=== PATIENT | male | born 1950 | race Caucasian/White ===

== ENCOUNTER → 2024-04-12 14:24 | Outpatient (REF) | payer MEDICARE, OTHER, SELFPAY | LOC: RAD 14:24 | PROVIDERS: ATTENDING PHYSICIAN Nurse Practitioner; FAMILY PHYSICIAN Family Medicine; REFERRING PHYSICIAN Internal Medicine Cardiovascular Disease | DX: R07.89 Other chest pain (principal); R06.02 Shortness of breath | CPT/HCPCS: 71046 ==

== ENCOUNTER → 2024-04-16 10:45 | Outpatient (REF) | payer MEDICARE, OTHER, SELFPAY | LOC: HWRCS 10:45 | PROVIDERS: ATTENDING PHYSICIAN Nurse Practitioner; FAMILY PHYSICIAN Family Medicine | DX: R07.89 Other chest pain (principal) | CPT/HCPCS: 78452; 93017; A9500; J2785 ==

== ENCOUNTER 2024-04-20 08:40 | Inpatient (IN) | payer MEDICARE, OTHER, SELFPAY ==
[2024-04-19] VITALS (13 sets, daily range): BP systolic 110–140; BP diastolic 66–96; BMI 32.5; BMI 30.4
[2024-04-19 12:45] LABS: % Eosinophils 2.1 % (0-6); % Immature Granulocytes 0.5 % (0-0.5); % Lymphocytes 20.7 % (20.5-51.1); % Monocytes 10.5 % (1.7-9.3); % Neutrophils 64.2 % (42.2-75.2); Absolute Basophils 0.1 10^3/uL (0-0.2); Absolute Eosinophils 0.1 10^3/uL (0-0.7); Absolute Lymphocytes 1.3 10^3/uL (1.2-3.4); Absolute Monocytes 0.6 10^3/uL (0.1-0.6); Absolute Neutrophils 3.9 10^3/uL (1.4-6.5); Hematocrit 44.5 % (39.0-52.0); Hemoglobin 14.8 g/dL (13.0-18.0); Mean Corp Hgb Conc. 33.3 g/dL (33.0-37.0); Mean Corpuscular Hgb 30.3 pg (27.0-31.0); Mean Corpuscular Volume 91.2 fL (80.0-94.0); Nucleated Red Blood Cells % 0 % (-); Platelet Count 153 10^3/uL (130-400); Red Blood Cell Count 4.88 10^6/uL (4.70-6.10); Red Cell Dist. Width 14.6 % (11.5-14.5); White Blood Cell Count 6.1 10^3/uL (4.8-10.8)
[2024-04-19 12:47] LABS: ALT (SGPT) 16 U/L (0-50); AST (SGOT) 22 U/L (17-59); Albumin 4.2 g/dl (3.5-5.0); Alkaline Phosphatase 79 U/L (38-126); Blood Urea Nitrogen 33 mg/dl (9-20); Calcium 9.5 mg/dl (8.4-10.2); Carbon Dioxide 26 mmol/L (22-30); Chloride 104 mmol/L (98-107); Estimated Creatinine Clearance 47 ml/min; Glucose 118 mg/dl (70-99); Potassium 4.3 mmol/L (3.5-5.1); Sodium 137 mmol/L (135-145); Total Bilirubin 1.3 mg/dl (0.2-1.3); Total Protein 6.7 g/dl (6.3-8.2); eGFR 39.25
[2024-04-19 12:56] LABS: NT-proBNP 5780 pg/ml
--- NOTE | 2024-04-19 13:09 | ED.GENMED ---
History of Present Illness
General
Chief Complaint: Cardiac Symptoms
Source: patient
Exam Limitations: none
Time Seen by Provider: 04/19/24 12:06
Nursing documentation reviewed up to this point in time: agreed with
History of Present Illness
History of Present Illness:
73-year-old male past medical history of A-fib with pacemaker currently on Eliquis, CHF CAD hypertension, diabetes presenting to the emergency department with worsening dyspnea on exertion over the past 2 weeks. Denies any specific chest pain
nausea vomiting denies significant swelling. No recent fevers or illness.
Past History
Past History
ED Past Medical History: Arrthythmia (A. fib), CAD (Minimal disease on cardiac cath in 2013), CHF (Cardiomyopathy (EF 20%)), HTN and Hypercholesterolemia
ED Past Surgical History: Cardiac (AICD) and Orthopedic
Social History
Tobacco: Non-smoker
Review of Systems
Review of Systems
Allergies reviewed?: Yes
All Other Systems: ROS reviewed and negative except as documented in HPI and ROS
Phy Exam
Physical Exam
Physical Exam:
GENERAL: Alert , in no apparent distress
EYE: pupils equal and reactive
NECK: Supple, no significant adenopathy.
ENT: o/p clr, mmm.
CARDIAC: Regular rate and rhythm .
LUNGS: Clear breath sounds bilaterally, no acute respiratory distress, no wheezes/rales/rhonchi
ABDOMEN: Soft, without focal tenderness, no r/g, no cvat
NEUROLOGICAL: Alert and oriented, no focal neuro deficits
SKIN: Warm and dry, skin intact.
MUSCULOSKELETAL: No edema, well perfused.
PSYCH: Normal and appropriate interaction.
Course
Orders/Labs/Results
Orders:
Orders
04/19/24 12:03
EKG [Electrocardiogram (*1)] Urgent
Reason for Study: Shortness of Breath
EKG- Treatment ONCE
04/19/24 12:26
Complete Blood Count/With Diff Urgent
Comprehensive Metabolic Panel Urgent
NT-proBNP Urgent
04/19/24 12:31
Chest [CR Chest - 2 Views ] Urgent
Comment:
Reason For Exam: sob
04/19/24 12:52
Interrogate Pacemaker- Treatment ONCE
04/19/24 13:52
Furosemide [Lasix] 40 mg IV NOW STA
04/19/24 14:48
Echo 2D MMode Color/Doppler Routine
Reason for Study: CHF
Cardiology Consult: Stanford Lindsey
04/19/24 15:03
Case Management Consult ONCE
Case Management Consult: Discharge Planning
Comment: please assess cost to patient of entresto 24/26mg BID. MB
Abnormal Lab Results
04/19/24
12:26
RDW 14.6 H %
(11.5-14.5)
MPV 11.0 H fL
(7.4-10.4)
Monocytes % 10.5 H %
(1.7-9.3)
BUN 33 H mg/dl
(9-20)
Creatinine 1.8 H mg/dL
(0.7-1.3)
Glucose 118 H mg/dl
(70-99)
04/19/24 12:26
04/19/24 12:26
Vital Signs
Initial and Last Documented VS:
Initial Vital Signs
Temp Pulse Resp BP Pulse Ox
98.3 F 77 16 134/82 98
04/19/24 11:57 04/19/24 11:57 04/19/24 11:57 04/19/24 11:57 04/19/24 11:57
Last Documented Vital Signs
Temp Pulse Resp BP Pulse Ox
98.3 F 62 16 130/83 94
04/19/24 11:57 04/19/24 14:08 04/19/24 14:00 04/19/24 14:08 04/19/24 14:00
MDM/Problems Addressed
MDM/Problems Addressed:
73-year-old male presenting to the emergency department with concerns of worsening dyspnea on exertion over the past 2 weeks. Seems to have more frequent shortness of breath with exertion than previous but otherwise is able to engage in normal
activity today. BNP elevated to the 5000's here otherwise chest x-ray without acute abnormalities EKG no significant acute changes. Creatinine patient's baseline. Case discussed with cardiology. They were concerned of CHF exacerbation advised
for IV Lasix plan for echo and monitoring overnight.
*Critical Care Note
Total Time (30-74mins, 75-104mins- exclusive of procedures): Not Applicable
ED Attending Note
-
Portions of this chart may have been created with voice recognition software.� Occasional wrong word or��sound alike� substitutions may have occurred due to the inherent limitations of voice recognition software.
Discharge Plan
Departure
Patient Disposition: Admit
Date of Disposition: 04/19/24
Time of Disposition: 15:27
Admit to: Telemetry
Admit to doctor: Melonie
Presentation/result/management discussed w/ accepting MD/DO: Hospitalist
Patient with high blood pressure during this ER visit?: No
Condition: Good
Covid-19: Not Applicable
Discharge Problem:
Acute exacerbation of CHF (congestive heart failure)
Prescriptions:
No Action
ezetimibe 10 MG tablet
10 mg PO DAILY
ascorbic acid (vitamin C) [Vitamin C] 500 MG tablet
500 mg PO DAILY
acetaminophen 325 MG tablet
650 mg PO DAILYPRN PRN (Reason: mild pain)
tadalafil [Cialis] 2.5 MG tablet
2.5 mg PO HS
metoprolol succinate [Toprol XL] 25 MG tablet extended release 24 hr
25 mg PO BID
Jardiance 10 MG tablet
10 mg PO DAILY Qty: 90 3RF
coenzyme Q10 [CoQ-10] 100 mg Capsule
100 mg PO DAILY
therapeutic multivitamin Tablet
1 tab PO DAILY
cholecalciferol (vitamin D3) 25 mcg (1,000 unit) Tablet
25 mcg PO DAILY
[place] Xl
1 cap PO BID
metformin 500 MG tablet
500 mg PO BID@0800,1700
Patient Comments:
03/02/2023, patient and patient's spouse state that this medication is currently on hold until (03/03/2023).
dofetilide 250 MCG capsule
250 mcg PO BID
furosemide 20 mg Tablet
20 mg PO DAILY
Eliquis 5 MG tablet
5 mg PO BID
Patient Comments:
03/02/2023, patient and patient's spouse state that this medication is currently on hold until Tuesday (03/04/2023).
ibuprofen 400 mg Tablet
400 mg PO BID Qty: 6 0RF
Rx Instructions:
this is available OTC (as 200mg tablets)
Referrals:
Herminia Sommer DO [Family Provider] -
Interventions
Interventions:
*Risk Screen - Suicide Last Done: 04/19/24 11:57
*General Assessment Last Done: 04/19/24 12:18
*Neglect/Abuse Screening Last Done: 04/19/24 11:57
ED- Fall Risk Assessment Last Done: 04/19/24 12:18
*ED COVID-19 Vaccine History Last Done: 04/19/24 12:18
ED- Pulmonary Assessment Last Done: 04/19/24 12:18
ED- Cardiac Assessment Last Done: 04/19/24 12:18
Discharge Date and Time
Print Language: CITIZEN OF [place]
[2024-04-19] MEDS: LASIX 40 MG IV (14:08)
--- NOTE | 2024-04-19 14:43 | CON.CAR ---
Addendum entered and electronically signed by Stanford Sanabria MD 04/19/24 17:03:
I saw and examined the patient.
The [employer] Metal Shop Foreman's note was reviewed and I agree with the note.
Comment: Briefly, 73M PMHx HFrEF (20%), NICM, s/p [employer]-D and persistent AFib who presents with worsening dyspnea on exertion, orthopnea and bendopnea suggestive of acute on chronic decompensated heart failure
Not overtly volume overloaded and currently on room air
Tells me his weight is relatively stable however his proBNP is elevated to 6000 and chest x-ray suggestive of mild pulmonary vascular congestion (my interpretation)
Plan for IV diuresis
Monitor for symptomatic improvement
Follow renal function closely, creatinine baseline is thought to be closer to 1.2-1.5 and is 1.8 here
Continue home GDMT�Toprol-XL, Jardiance, spironolactone and losartan
Will ask case management to funes Entresto, if not prohibitively expensive would ideally be on ARNI
Transthoracic echocardiogram here reviewed and compared to prior, left ventricle is more dilated, right ventricle is now dilated and hypokinetic and mitral regurgitation has worsened from mild to moderate�severe
Will need to discuss goals of care further and consider referral for advanced heart failure evaluation
Original Note:
Consultation
Consultation Request
Date/Time Consultation Performed: 04/19/24
Requesting Provider: Gene Hunter PA-C
Performing Provider: Anushka Cordero PA-C for Dr. Sanabria
Reason for Consultation: CHF
Medical History
-
Chief Complaint: SOB
History of Present Illness:
Patient is a 73 yo M with past medical history of atrial fibrillation status post pulmonary vein isolation/ablation, CAD, cardiomyopathy with EF of 20% with [place] [employer] ICD, obstructive sleep apnea, hypertension, diabetes, hypercholesteremia, prostate
cancer status post prostatectomy and XRT who had pneumonia 03/2024 and was treated with antibiotics. During that time he also was diuresed with higher dose oral Lasix. He reports since that time his breathing has not returned to normal. Over the
last several weeks he reports worsening dyspnea on exertion with activities at times. He states that he could walk up a hill 40 to 50 yards several times and be fine, however then the next time feels very winded and needs to stop and rest.
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 He also reports with
bending over he feels short of breath. He denies orthopnea, weight gain, lower extremity edema, abdominal bloating. He was seen in the office on 04/09 with complaints of shortness of breath and was ordered a chest x-ray which showed small bilateral
pleural effusions and proBNP was elevated at 6200. During office visit, no evidence of overt volume overload by device interrogation. Due to symptoms, his Lasix was increased for a time. He also underwent nuclear stress test which was abnormal
but stable with no evidence of acute ischemia and fixed defects with EF 17%. His EF most recently was 20% by echo, and was scheduled for repeat echocardiogram which has not yet been completed. He denies feelings of palpitations or abnormal heart
rhythms. As he was still feeling poorly today, was referred by cardiology office to come into emergency room for evaluation.
PMH:
Chronic heart failure with reduced EF
Nonischemic cardiomyopathy, EF 20%
Status post [place] ICD, not MRI compatible
Chronic renal insufficiency
History of atrial fibrillation and atrial flutter
Status post PVI/CTI 2013, 2020
Chronic Tikosyn therapy
Chronic anticoagulation with Eliquis
Hypertension
Hyperlipidemia with history of myalgias on statins
Type 2 diabetes
History of prostate cancer status post prostatectomy and XRT
VONDA
Past Medical History
Past Medical History: Arrhythmias, CAD, CHF, HTN and Hypercholesterolemia
Past Surgical History: Other (nasal repair, r knee surgery, cataract, prostatectomy, LHC, PVI, ICD implant, multiple CV)
Social History
Tobacco: Non-Smoker
Alcohol: None
Drug: None
Personal:
Living: With Family
Family History
Family History: Reviewed & Not Pertinent
Allergies / Home Medications
Allergy/AdvReac Type Severity Reaction Status Date / Time
morphine Allergy tachycardia Verified 04/19/24 11:57
Qxdokeu-OFT-InU Reductase Allergy Myalgias Verified 04/19/24 11:57
Inhibitor
[Rtgjdta-Sxq-Ttz Reductase
Inhibitor]
�Medication �Instructions �Recorded �Confirmed �Type
ezetimibe 10 mg tablet 10 mg PO DAILY High cholesterol 08/20/13 03/02/23 History
ascorbic acid (vitamin C) 500 mg 500 mg PO DAILY Supplement 08/21/13 03/02/23 History
tablet (Vitamin C)
acetaminophen 325 mg tablet 650 mg PO DAILYPRN PRN mild pain 07/13/19 03/02/23 History
tadalafil 2.5 mg tablet (Cialis) 2.5 mg PO HS Urinary issue 07/13/19 03/02/23 History
metoprolol succinate 25 mg 25 mg PO BID Arrhythmia 04/30/21 03/02/23 History
tablet,extended release 24 hr
(Toprol XL)
empagliflozin 10 mg tablet 10 mg PO DAILY #90 tabs 06/11/21 03/02/23 Rx
(Jardiance)
coenzyme Q10 100 mg capsule 100 mg PO DAILY Supplement 03/01/23 03/02/23 History
(CoQ-10)
[place] Xl 1 cap PO BID Supplement 03/02/23 03/02/23 History
cholecalciferol (vitamin D3) 25 25 mcg PO DAILY Supplement 03/02/23 03/02/23 History
mcg (1,000 unit) tablet
dofetilide 250 mcg capsule 250 mcg PO BID Arrhythmia 03/02/23 03/02/23 History
furosemide 20 mg tablet 20 mg PO DAILY Fluid 03/02/23 03/02/23 History
Retention/Swelling
metformin 500 mg tablet 500 mg PO BID@0800,1700 Diabetes 03/02/23 03/03/23 History
therapeutic multivitamin 1 tab PO DAILY Supplement 03/02/23 03/02/23 History
apixaban 5 mg tablet (Eliquis) 5 mg PO BID Blood Clot 03/03/23 03/02/23 History
Prevention/Tx
ibuprofen 400 mg tablet 400 mg PO BID #6 tabs 03/03/23 Rx
Review of Systems
-
History Source: Patient and Family
All other systems: Negative unless noted
Physical Exam
Vital Signs
Temp Pulse Resp BP Pulse Ox
98.3 F 62 16 130/83 94
04/19/24 11:57 04/19/24 14:08 04/19/24 14:00 04/19/24 14:08 04/19/24 14:00
Lab Results
04/19/24 12:26
04/19/24 12:26
Hic-Z-Ctiqjriyolt Pept 5780 pg/ml 04/19/24 12:26
Physical Exam
General: No Apparent Distress and Comfortable
HEENT: Normocephalic, Anicteric and Moist Mucous Membranes
Respiratory: Crackles (few scattered) and Non Labored Respirations
Cardiac: S1/S2 and Regular Rhythm
GI: Soft, Non Tender, Non Distended and Normal Bowel Sounds
Musculoskeletal: No Clubbing, No Cyanosis and No Edema
Skin: Warm and Dry
Neuro: AO x 3
Impression / Plan
-
Primary Transmission Supervisor: Dr. Wright
Assessment:
Presentation with BAKER
Concern for acute on chronic HFrEF
Nonischemic cardiomyopathy, EF 20%
Status post [facility] [employer] ICD, not MRI compatible
Chronic renal insufficiency
History of atrial fibrillation and atrial flutter
Status post PVI/CTI 2013, 2020
Chronic Tikosyn therapy
Chronic anticoagulation with Eliquis
Hypertension
Hyperlipidemia with history of myalgias on statins
Type 2 diabetes
History of prostate cancer status post prostatectomy and XRT
VONDA
ECHO 03/02/2023: Dilated cardiomyopathy with EF 20%, mild concentric LVH, right-sided ICD, dilated LA, mild mitral regurgitation, trace AR, trace TR, PAP 25 to 30 mmHg
Lexiscan nuclear stress test 04/16/2024: Negative stress test for ischemia, moderate defect in basal inferior, mid inferior, apical inferior, inferolateral, basal, mid anterior lateral lucio consistent with prior infarction, EF 17%, no significant
change compared to prior study from 2021
Plan:
-Patient presents with dyspnea on exertion at times, worse over the last several weeks despite increase in outpatient diuretic therapy
-His chest x-ray today appears somewhat improved compared to that from last week and proBNP down slightly compared to last week as well
-Would attempt to diurese with IV lasix - was given 40mg IV in ER
-Creatinine 1.8 today, baseline appears close to 1.5. Will follow closely with diuresis
-Suspect he needs higher dosing than 20 mg daily given his known cardiomyopathy
-Check echo, last from 02/2023 with results as above
-Currently on good medical therapy with Toprol, losartan, spironolactone, Jardiance. Would consider transition to Entresto if cost affordable, will have case management assess
-In a sensed V paced rhythm by EKG. Recent device interrogation in office 04/09 without recent A-fib
-Currently on Tikosyn 250 mcg every 12 hours. If creatinine does not improve with diuresis, may need to adjust dosing based on creatinine clearance
-Continue Eliquis
-Discussed with patient and at bedside
Data Reviewed
-
EKG: Tracing Personally Visualized and interpreted
Radiology: Report Reviewed by me
Medical Tests (Nuc Med, Echo etc): Report Reviewed by me
Labs: Labs Reviewed by me
Old Records: Reviewed
--- NOTE | 2024-04-19 15:28 | HPS.HSE ---
Family Physician
-
Family Physician: Herminia Sommer
Chief Complaint
-
exertional shortness of breath
History of Present Illness
Patient is a 73-year-old male with past medical history significant for hypertension, hyperlipidemia, atrial fibrillation, CAD, DM II and HFpEF who presented to [facility] ED for evaluation of increasing exertional shortness of breath over past two
weeks. Patient reports he has noticed increased shortness of breath with exertion over past two weeks slowly getting worse each day, he states the increase is associated with increased fatigue. He reports a 32 ounce a day fluid restriction which he
adheres to and does daily weights and notifies provider if >3 pound gain. He denies any fever, chills, palpitations, chest pain, cough, nausea, vomiting, constipation, diarrhea or urinary symptoms. Patient sought out patient workup and following
some out patient testing provider recommended patient come to ED for evaluation.
Medical History
Past Medical History
Past Medical History: Reports Other
Additional Past Medical History:
hypertension
benign hyperlipidemia
atrial fibrillation
CAD
DM II
HFrEF
Past Surgical History: Reports Other
Additional Past Surgical History:
cardioversion
electrophysiology ablation
prostatectomy
defibrillator
Social History
Tobacco: Non-smoker
Alcohol: None
Drug: None
Personal:
Living: With Family
Employment: Employed (runs own farm )
Family History
Family History: Not pertinent
Allergies / Home Medications
Allergies reflects when Allergies were last updated in [facility].
Home Medications with original date entered in [facility]
Allergy/Medication List:
Allergies
Allergy/AdvReac Type Severity Reaction Status Date / Time
morphine Allergy tachycardia Verified 04/19/24 11:57
Qrsjwom-BKM-LpE Reductase Allergy Myalgias Verified 04/19/24 11:57
Inhibitor
[Rahbgju-Kjz-Yqo Reductase
Inhibitor]
Home Medications
ezetimibe 10 mg tablet 10 mg PO DAILY High cholesterol 08/20/13
ascorbic acid (vitamin C) 500 mg tablet (Vitamin C) 500 mg PO DAILY Supplement 08/21/13
acetaminophen 325 mg tablet 650 mg PO DAILYPRN PRN mild pain 07/13/19
metoprolol succinate 25 mg tablet,extended release 24 hr (Toprol XL) 25 mg PO BID Arrhythmia 04/30/21
empagliflozin 10 mg tablet (Jardiance) 10 mg PO DAILY #90 tabs 06/11/21
coenzyme Q10 100 mg capsule (CoQ-10) 100 mg PO DAILY Supplement 03/01/23
cholecalciferol (vitamin D3) 25 mcg (1,000 unit) tablet 25 mcg PO DAILY Supplement 03/02/23
dofetilide 250 mcg capsule 250 mcg PO BID Arrhythmia 03/02/23
fish, borage, flaxseed oils-omega 3,6,9 comb no.1 1,200 mg capsule (Purling 3-6-9) 1 cap PO DAILY Supplement ##0 03/02/23
furosemide 20 mg tablet 20 mg PO DAILY Fluid Retention/Swelling 03/02/23
metformin 500 mg tablet 500 mg PO BID@0800,1700 Diabetes 03/02/23
therapeutic multivitamin 1 tab PO DAILY Supplement 03/02/23
apixaban 5 mg tablet (Eliquis) 5 mg PO BID 04/19/24
spironolactone 25 mg tablet 12.5 mg PO DAILY 04/19/24
tadalafil 2.5 mg tablet 2.5 mg PO HS 04/19/24
Review of Systems
-
History Source: Patient
Constitutional: Reports No Symptoms
EENT: Reports No Symptoms
Respiratory: Reports Other (exertional shortness of breath )
Cardiac: Reports No Symptoms
Abdomen/GI: Reports No Symptoms
: Reports No Symptoms
Musculoskeletal: Reports No Symptoms
Skin: Reports No Symptoms
Neurological: Reports No Symptoms
Endocrine: Reports No Symptoms
Hematologic/Lymphatic: Reports No Symptoms
Psych: Reports No Symptoms
Physical Exam
Vital Signs
Vital Signs
Temp Pulse Resp BP Pulse Ox
98.3 F 62 16 130/83 94
04/19/24 11:57 04/19/24 14:08 04/19/24 14:00 04/19/24 14:08 04/19/24 14:00
Physical Exam
General: Well Developed, Well Nourished, No Apparent Distress, Comfortable, Conversant and Morbidly Obese
HEENT: NormoCephalic, Moist mucous membranes, Atraumatic, Nose Appears Normal and Ears Appear Normal
Respiratory: Clear and Decreased Breath Sounds
Cardiac: S1/S2 and Regular Rhythm; No Murmur, Rub or Gallop
GI: Soft, Non Tender, Non Distended and Normal Bowel Sounds; No Organomegaly
Rectal: Deferred by Provider
Genito-urinary: Deferred by me
Musculoskeletal: No Clubbing, No Cyanosis and No Edema
Skin: Warm and IV/Catheter Site; No Rash
Neuro: Awake, Alert, AO x 3 and Nonfocal/grossly intact
Psych: Calm and Intact Judgment/Insight
Laboratory Results
-
04/19/24 12:26
04/19/24 12:26
Laboratory Results
Total Bilirubin 1.3 mg/dl (0.2-1.3) 04/19/24 12:26
AST 22 U/L (17-59) 04/19/24 12:26
ALT 16 U/L (0-50) 04/19/24 12:26
Alkaline Phosphatase 79 U/L (38-126) 04/19/24 12:26
Data Reviewed
-
Diagnostic Radiology: Report Reviewed by me (CXR: Small patchy opacity in the left lung base, atelectasis versus mild pneumonia. Small left and suspected trace right pleural fluid. No pneumothorax. Stable cardiomediastinal silhouette. Stable left
cardiac conduction device with leads in the right atrium, right ventricle, and coronary sinus. Ch)
Medical Tests (Nuc Med, Echo, EKG etc): Report Reviewed by me (EKG: Atrial-sensed ventricular-paced rhythm with prolonged AV conduction)
Impression/Plan
-
IMPRESSION/PLAN:
#HFrEF
BNP 5780
CXR: Small patchy opacity in the left lung base, atelectasis versus mild pneumonia.
Small left and suspected trace right pleural fluid. No pneumothorax. Stable cardiomediastinal silhouette. Stable left cardiac conduction device with leads in the right atrium, right ventricle, and coronary sinus. Chronic
degenerative changes of the spine.
ECHO: report pending
- Admit to telemetry
- consult cardiology
- IV Lasix
- fluid restriction 32 ounces
#CHATO
BUN 33, Creat 1.8
- monitor BMP closely with IV diuresis
#benign hypertension
- continue metoprolol
#hyperlipidemia
- continue ezetimibe
#atrial fibrillation
EKG: Atrial-sensed ventricular-paced rhythm with prolonged AV conduction
- continue dofetilide, Eliquis, metoprolol
#CAD
- continue ezetimibe
#DM II
A1C 6.6 (03/03/2023)
- continue Jardiance
- hold metformin
- AccuCheck AC & HS
- SSI
#Hx prostate cancer
s/p prostatectomy
Code status: DNR
DVT prophylaxis: Eliquis
--- NOTE | 2024-04-19 16:09 | CM ---
Unable to obtain out of pocket cost for Entresto until the script is sent to patient's pharmacy;
Gene Hunter notified to send script; CM will contact Rx once script is sent
--- NOTE | 2024-04-19 16:19 | W.PN.UPDATE ---
Update Note
Progress Note Update
This is an addendum to the H&P written by Mony Hairston on 04/19/2024.� Patient seen and examined independently with NURSERY WORKER.
73-year-old male past medical history of atrial fibrillation status post pulmonary vein isolation/ablation on Eliquis, CAD, cardiomyopathy with EF of 20% with ICD, obstructive sleep apnea, hypertension, diabetes, hypercholesteremia, prostate cancer
status post prostatectomy and XRT presenting with shortness of breath despite increasing diuretic.
Chest x-ray shows small patchy opacity in the left lung base atelectasis versus mild pneumonia.� Small left and suspected trace right pleural fluid.� Cardiac BNP of 5700.
Creatinine of 1.8 from baseline of 1.5.
Presentation consistent with acute CHF exacerbation.� 40 IV Lasix daily.� Check echocardiogram.� Cardiology consulted.
[2024-04-19] MEDS: TIKOSYN 250 MCG PO (22:57)
[2024-04-19] MEDS: TOPROL XL 25 MG PO (22:57)
[2024-04-19] MEDS: ELIQUIS 5 MG PO (22:57)
[2024-04-19 23:01] LABS: Glucose - Point of Care 102 mg/dl (70-99)
[2024-04-20 03:28] VITALS: BP 140/74
[2024-04-20 05:51] VITALS: BMI 30.4
[2024-04-20 07:32] LABS: % Basophils 2.2 % (0-2); % Eosinophils 1.9 % (0-6); % Immature Granulocytes 0.5 % (0-0.5); % Lymphocytes 20.3 % (20.5-51.1); % Monocytes 10.9 % (1.7-9.3); % Neutrophils 64.2 % (42.2-75.2); Absolute Basophils 0.1 10^3/uL (0-0.2); Absolute Eosinophils 0.1 10^3/uL (0-0.7); Absolute Lymphocytes 1.3 10^3/uL (1.2-3.4); Absolute Monocytes 0.7 10^3/uL (0.1-0.6); Hematocrit 44.8 % (39.0-52.0); Hemoglobin 15.4 g/dL (13.0-18.0); Mean Corp Hgb Conc. 34.4 g/dL (33.0-37.0); Mean Corpuscular Hgb 30.5 pg (27.0-31.0); Mean Corpuscular Volume 88.7 fL (80.0-94.0); Mean Platelet Volume 11.4 fL (7.4-10.4); Nucleated Red Blood Cells % 0 % (-); Platelet Count 132 10^3/uL (130-400); Red Blood Cell Count 5.05 10^6/uL (4.70-6.10); Red Cell Dist. Width 14.5 % (11.5-14.5); White Blood Cell Count 6.3 10^3/uL (4.8-10.8)
[2024-04-20 07:33] LABS: Glucose - Point of Care 122 mg/dl (70-99)
[2024-04-20 07:35] VITALS: BP 130/79
[2024-04-20 07:43] LABS: HDL Cholesterol 25 mg/dl; LDL Cholesterol, Calculated 163 mg/dl; Total Cholesterol 217 mg/dl (50-199); Triglyceride 149 mg/dl (10-149); Very Low Density Lipoprotein 29 mg/dl (0-30)
[2024-04-20 08:04] LABS: TSH Reflex To Free T4 3.14 uIU/ml (0.47-4.68)
[2024-04-20] MEDS: THERAGRAN 1 TABLET PO (08:36)
[2024-04-20] MEDS: ZETIA 10 MG PO (08:37)
[2024-04-20] MEDS: TOPROL XL 25 MG PO (08:37)
[2024-04-20] MEDS: TIKOSYN 250 MCG PO (08:37)
[2024-04-20] MEDS: ELIQUIS 5 MG PO (08:37)
[2024-04-20] MEDS: FARXIGA 10 MG PO (08:37)
[2024-04-20] MEDS: VITAMIN C 500 MG PO (08:37)
[2024-04-20] MEDS: ALDACTONE 12.5 MG PO (08:37)
[2024-04-20] MEDS: LASIX 40 MG IV (08:37)
[2024-04-20] MEDS: VITAMIN D3 (cholecalciferol) 25 MCG PO (08:37)
[2024-04-20 08:48] LABS: Blood Urea Nitrogen 32 mg/dl (9-20); Carbon Dioxide 26 mmol/L (22-30); Chloride 103 mmol/L (98-107); Estimated Creatinine Clearance 51 ml/min; Glucose 112 mg/dl (70-99); Potassium 3.9 mmol/L (3.5-5.1); Sodium 138 mmol/L (135-145); eGFR 45.21
[2024-04-20 09:25] LABS: COVID-19 Antigen Negative (Negative)
--- NOTE | 2024-04-20 09:57 | W.PN.CARDCBS ---
Addendum entered and electronically signed by Stanford Sanabria MD 04/20/24 14:41:
I saw and examined the patient.
The Manager Validation's note was reviewed and I agree with the note.
Comment: 73-year-old man past medical history of nonischemic cardiomyopathy with severely reduced left ventricular ejection fraction (20%) presenting with worsening dyspnea/orthopnea/bendopnea concerning for mild CHF exacerbation
Received IV Lasix and tells me symptomatically he is improved
Creatinine better today following diuresis consistent with cardiorenal syndrome
At a minimum would recommend increasing home Lasix dose to 40 mg daily, previously was taking 20 mg
Have asked case management to funes out Entresto, if this is affordable would add in place of losartan which she was on previously
Transthoracic echocardiogram here reviewed with patient and at bedside, systolic function is stable however left ventricle is more dilated and mitral regurgitation has worsened
Offered to facilitate advanced heart failure evaluation as an outpatient, however, he does not seem interested at this time
Also reviewed that MitraClip procedure may be an option in the future
Stable for discharge today from my perspective
Outpatient follow-up has been arranged
Original Note:
Today's Communication / Plan
-
Replete K to keep greater than 4
Check magnesium level
Would consider discharging home on increased dose of Lasix of 40 mg daily
Will need BMP and mag in 1 week as outpatient -order placed on chart
Outpatient cardiology follow up arranged
Impression / Plan
-
Primary Tobacco Dipper: Dr. Wright
Assessment:
Presentation 04/19/2024 with BAKER
Acute on chronic HFrEF, proBNP 5780
Nonischemic cardiomyopathy, EF 20%
Status post [employer] ICD, not MRI compatible
Chronic renal insufficiency
History of atrial fibrillation and atrial flutter
Status post PVI/CTI 2020
Chronic Tikosyn therapy
Chronic anticoagulation with Eliquis
Hypertension
Hyperlipidemia with history of myalgias on statins
Type 2 diabetes
History of prostate cancer status post prostatectomy and XRT
VONDA
ECHO 03/02/2023: Dilated cardiomyopathy with EF 20%, mild concentric LVH, right-sided ICD, dilated LA, mild mitral regurgitation, trace AR, trace TR, PAP 25 to 30 mmHg
Echo 04/19/2024: EF 22%, severely reduced LV systolic function with global hypokinesis with regional variability. Mildly dilated right ventricle with reduced RV systolic function. Moderate to severe MR. Mild TR. PAP 32 mmHg
Lexiscan nuclear stress test 04/16/2024: Negative stress test for ischemia, moderate defect in basal inferior, mid inferior, apical inferior, inferolateral, basal, mid anterior lateral lucio consistent with prior infarction, EF 17%, no significant
change compared to prior study from 2021
Plan:
-Patient presented 04/19/2024 with dyspnea on exertion at times, worse over the last several weeks despite increase in outpatient diuretic therapy
-His chest x-ray today appears somewhat improved compared to that from last week and proBNP down slightly compared to last week as well
-Patient reports good response/urine output to IV Lasix 40 mg IV and is negative ~3400 cc. He reports he is able to walk 4 times around the floor at a brisk pace without shortness of breath.
-Was on Lasix 20 mg QD at home but increased to 40 mg a few days prior to admission. Would send home on 40 mg daily
-Creatinine improved from 1.8 to 1.6 with diuresis. Baseline appears close to 1.2-1.5. Will follow closely with diuresis
-Echo as noted above with ongoing reduced ejection fraction now with moderate to severe MR and mildly reduced RV systolic function.
-Currently on GDMT with Toprol, losartan, spironolactone, Jardiance. Would consider transition to Entresto if cost affordable, will have case management assess. Still awaiting cost
-Initial EKG was a sensed V paced. Recent device interrogation in office 04/09 without recent A-fib. However patient now having runs of NSVT and an accelerated rhythm possibly A-fib. Will have pacemaker interrogated -K+ 3.9, will replete. Add on
Mag level. Keep K+ 4-5, mag >2
-Currently on Tikosyn 250 mcg every 12 hours. If creatinine does not improve with diuresis, may need to adjust dosing based on creatinine clearance
-Continue Eliquis
Progress Note - Tobacco Dipper
Subjective
Date of Service: April 20, 2024
Patient seen and examined. Patient reports he has had good response to IV diuresis with increased urination. This morning he was able to walk for times around the floor briskly without having to stop due to shortness of breath. Reports he is
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
Objective
Labs:
04/20/24 07:11
04/20/24 05:40
Labs
Hgb 15.4 g/dL (13.0-18.0) 04/20/24 07:11
Hct 44.8 % (39.0-52.0) 04/20/24 07:11
Plt Count 132 10^3/uL (130-400) 04/20/24 07:11
Sodium 138 mmol/L (135-145) 04/20/24 05:40
Sodium Cancelled 04/20/24 05:40
Potassium 3.9 mmol/L (3.5-5.1) 04/20/24 05:40
Potassium Cancelled 04/20/24 05:40
BUN 32 mg/dl (9-20) H 04/20/24 05:40
BUN Cancelled 04/20/24 05:40
Creatinine 1.6 mg/dL (0.7-1.3) H 04/20/24 05:40
Creatinine Cancelled 04/20/24 05:40
Glucose 112 mg/dl (70-99) H 04/20/24 05:40
Glucose Cancelled 04/20/24 05:40
Vital Signs and I&O:
Vital Signs
Temp Pulse Resp BP Pulse Ox
98.4 F 65 18 130/79 96
02/07/25 07:35 04/20/24 08:37 04/20/24 07:35 04/20/24 08:37 04/20/24 07:35
Vital Signs
Temp Pulse Resp BP Pulse Ox
98.4 F 65 18 130/79 96
04/20/24 07:35 04/20/24 08:37 04/20/24 07:35 04/20/24 08:37 04/20/24 07:35
Intake & Output
04/18/24 04/19/24 04/20/24 04/21/24
06:59 06:59 06:59 06:59
Intake Total 180 / 180
Output Total 2225 / 2225 1525 / 1525
Balance -2225 / -2225 -1345 / -1345
Physical Exam
Physical Exam
GEN: No distress, awake, Ox3
HEENT: supple, anicteric, mmm
LUNGS: CTA, no wheezes/rales
CV: Reg, S1/S2, 1/6 syst murmur at apex
ABD: soft, BS+, NT/ND
EXT: No edema, clubbing or cyanosis
NEURO: Gross non-focal
SKIN: No rash, warm, dry, pink
--- NOTE | 2024-04-20 10:08 | W.PN.HOSP.TC ---
Today's Communication/Plan
-
await for further card recs
Assessment / Plan
Assessment / Plan
73yo M with PMHx of HFrEF s/p [employer] IN[employer]CH[employer]IC-D, persistent Afib s/p PVI/CTI @14, mild MR, DM, HTN, CKD as per notes - came with SOB, patient stated that cardiology office sent him to ED due to him calling to c/o dyspnea. Remained not hypoxic. No overt signs of
CHF bedside next day after admission, ambulated without dyspnea. Started on IV lasix. Echo with worsening LV dilation, new RV dilation, and worsened to moderate-Severe MR
A/P:
#Acute on chronic HFrEF
Cardio for diuresis
Lasix, daily weight, follow electrolytes
#CHATO on CKD stage 3a
Possible baseline around 1.5-1.8, but not nevin CHATO
follow Cr
#DM type 2 with nephropathy
Insulin SS, DM diet, Accuchecks.
With concern for worsening kidney function - stop Metformin
#Persistent Afib
#Essential HTN
cont home meds
DVT ppx Eliquis
DNR/DNI
I have spent at least 58min reviewing chart, test results, communication with consultants and direct patient care
Anticipated Discharge: Within 24 hours
Subjective/Interval History
-
Date of Service: April 20, 2024
Objective Data
-
Labs:
Laboratory Results
04/20/24 04/20/24 04/20/24
05:40 05:40 05:40
WBC Cancelled
Hgb Cancelled
Hct Cancelled
Plt Count Cancelled
Sodium Cancelled 138
Potassium Cancelled 3.9
Chloride Cancelled
Carbon Dioxide
BUN
Creatinine
Glucose
Calcium
04/20/24 04/20/24 04/20/24
05:40 05:40 05:40
WBC
Hgb
Hct
Plt Count
Sodium
Potassium
Chloride 103
Carbon Dioxide Cancelled 26
BUN Cancelled 32 H
Creatinine Cancelled
Glucose
Calcium
04/20/24 04/20/24 04/20/24
05:40 05:40 05:40
WBC
Hgb
Hct
Plt Count
Sodium
Potassium
Chloride
Carbon Dioxide
BUN
Creatinine 1.6 H
Glucose Cancelled 112 H
Calcium Cancelled 9.0
04/20/24
07:11
WBC 6.3
Hgb 15.4
Hct 44.8
Plt Count 132
Sodium
Potassium
Chloride
Carbon Dioxide
BUN
Creatinine
Glucose
Calcium
Vital Signs:
Vital Signs
Temp Pulse Resp BP Pulse Ox
98.4 F 65 18 130/79 96
04/20/24 07:35 04/20/24 08:37 04/20/24 07:35 04/20/24 08:37 04/20/24 07:35
I&O
04/19/24 04/20/24 04/21/24
06:59 06:59 06:59
Intake Total 180 / 180
Output Total 2225 / 2225 1525 / 1525
Balance -2225 / -2225 -1345 / -1345
Review of Systems
-
History Source: Patient
All other systems: Reviewed and negative
Physical Exam
-
General: No Apparent Distress
HEENT: Normocephalic
Respiratory: Clear to Auscultation
Cardiac: Irregular Rhythm
GI: Soft, Nontender and Nondistended
Genito-urinary: No Costovertebral Tender
Musculoskeletal: No Clubbing, No Cyanosis and No Edema
Neuro: Awake, Alert, Oriented and AO x 3
Psych: Calm
[2024-04-20 11:00] LABS: Magnesium 2.3 mg/dl (1.6-2.3)
--- NOTE | 2024-04-20 11:35 | W.DCSUMMARY ---
Addendum entered and electronically signed by Fabrice Santillan MD 04/20/24 15:50:
pacemaker mediated tachy found and corrected with device reprogramming. Patient medically stable for d/c
Addendum entered and electronically signed by Nika Winter PA-C 04/20/24 14:55:
In addition to below medications patient is to resume his prior outpatient dosing of Losartan 12.5 mg BID
Original Note:
Discharge Summary
Discharge Data
Date of Admission: 04/20/24
Date of Discharge: 04/20/24
-
Pending Results: No
Hospital Course
73yo M with PMHx of HFrEF s/p PATCHER BOWLING BALL-D, persistent Afib s/p PVI/CTI @14, mild MR, DM, HTN, CKD as per notes - came with SOB, patient stated that cardiology office sent him to ED due to him calling to c/o dyspnea. Remained not hypoxic. No overt signs of
CHF bedside next day after admission, ambulated without dyspnea. Started on IV lasix. Echo with worsening LV dilation, new RV dilation, and worsened to moderate-Severe MR. Cardiology recommended discharge patient on increased Lasix 40mg and BMP in 1
week -instructions provided. Medically stable for d/c
I have spent at least 58min reviewing chart, test results, communication with consultants and direct patient care
Patient was managed for:
#Acute on chronic HFrEF
#CHATO on CKD stage 3a
#DM type 2 with nephropathy
#Persistent Afib
#Essential HTN
#Moderate-severe MR
Discharge Plan
-
Patient Disposition: Home (Routine Discharge)
Discharge Diagnosis/Procedures: CHF
Diet: Low Sodium and Restrict fluids to 48 oz
Activity: As tolerated
Driving Restrictions: As prior to admission
Blood Work: BMP and magnesium level in 1 week
Instructions: *DCA Heart Failure Instructions
Referrals:
Maia Capellan PA-C [Specified Professional Personl] - 05/01/24 9:40 am (You have cardiology follow up with Maia Capellan on May 01 at 9:40 am. If you are unable to make this appointment please call [phone] to reschedule)
Herminia Sommer DO [Family Provider] -
Prescriptions:
New
furosemide [Lasix] 40 mg tablet
40 mg PO DAILY Qty: 30 0RF
Continued
ezetimibe 10 MG tablet
10 mg PO DAILY
ascorbic acid (vitamin C) [Vitamin C] 500 MG tablet
500 mg PO DAILY
acetaminophen 325 MG tablet
650 mg PO DAILYPRN PRN (Reason: mild pain)
metoprolol succinate [Toprol XL] 25 MG tablet extended release 24 hr
25 mg PO BID
Jardiance 10 MG tablet
10 mg PO DAILY Qty: 90 3RF
coenzyme Q10 [CoQ-10] 100 mg Capsule
100 mg PO DAILY
therapeutic multivitamin Tablet
1 tab PO DAILY
cholecalciferol (vitamin D3) 25 mcg (1,000 unit) Tablet
25 mcg PO DAILY
[place]land 3-6-9 1,200 mg Capsule
1 cap PO DAILY Qty: 0
dofetilide 250 MCG capsule
250 mcg PO BID
spironolactone 25 mg Tablet
12.5 mg PO DAILY
tadalafil 2.5 mg Tablet
2.5 mg PO HS
Eliquis 5 mg Tablet
5 mg PO BID
Discontinued
metformin 500 MG tablet
500 mg PO BID@0800,1700
furosemide 20 mg Tablet
20 mg PO DAILY
Discharge Orders:
Discharge Patient (As Directed); Ordered 04/20/24
Ordered By: Fabrice Santillan
Discharge Date and Time
Print Language: LITHUANIAN
[2024-04-20 11:39] LABS: Glucose - Point of Care 115 mg/dl (70-99)
[2024-04-20] MEDS: KCL 40 MEQ PO (11:39)
[2024-04-20 11:46] VITALS: BP 110/75
--- NOTE | 2024-04-20 13:00 | CM ---
Addendum entered by Nickie Gambino RN 04/20/24 17:19:
Called [facility] pharmacy Entresto - is $503.79 / month supply . Nika Winter notified of funes.
Original Note:
Alert awake oriented patient who lives with his CHEMA IN A 2 STORY HOME WITH 1 STEP TO ENTER AND SLEEPS DOWNSTAIRS.He is independent in driving and all ADLs .Offered VN he declined need.
No adaptive devices
Had [facility] in past.
IMM reviewed signed on chart.
Pharmacy [facility] [place]
PCP Dr Sommer
PLAN Home no needs
--- NOTE | 2024-04-20 13:11 | W.PN.UPDATE ---
Update Note
Progress Note Update
Cardiology awaiting for results of ICD interrogation due to concerns for NSVT. D/C held
--- NOTE | 2024-04-20 15:38 | W.CARD.DEVCH ---
Cardiac Device Check
-
Device: Implanted Cardioverter-Defibrillator
Safety Administrator: [employer]
The patient's device was interrogated with assistance of the device architectural representative followed by a complete physician review. The device had normal function. However patient was having a pacemaker mediated tachycardia (PMT). Patient's device was
reprogrammed and P varp increased to prevent this from happening. Patient was also noted to have elevated RV lead threshold. Lead capture at 3.25 at 1.5 ms. There were no atrial or ventricular arrhythmias noted on interrogation. We will make
electrophysiology aware of abnormal RV lead threshold which can be followed/addressed as outpatient.
--- NOTE | 2024-04-23 11:14 | W.HF.CON ---
Heart Failure
- LV Function
Left ventricular function study result: LV Ejection fraction </= 35%
Ejection Fraction Percentage: 22
- ARNI
Patient already on ARNI: No
Heart Failure ARNI Contraindication: Patient Refusal
- ACEI/ARB
Patient already on ACEI/ARB: Yes
- Beta Miley
Patient already on Evidence Based Beta Miley: Yes
- Mineralocorticord Receptor Antagonist
Patient already on MRA: Yes
- SGLT-2 Inhibitor
Patient already on SGLT-2 Inhibitor: Yes
- Afib Anticoagulation
Patient already on Anticoagulation for Afib: Yes
- NYHA CHF Classification
NYHA CHF Classification Level: Class III - Symptoms w/ min exertion, interferes w/ nml daily activity
- ACC/AHA Stage
ACC/AHA Stage: Stage C: Symptomatic Heart Failure
== END 2024-04-20 17:24 | disposition home or self-care (01) | DRG 291 ==
LOC: 4 EAST ACU 08:40
PROVIDERS: Nurse Practitioner Family; Physician Assistant; ADMITTING PHYSICIAN Hospitalist; ATTENDING PHYSICIAN Internal Medicine; CONSULT PHYSICIAN Internal Medicine Cardiovascular Disease; EMERGENCY PHYSICIAN Emergency Medicine; FAMILY PHYSICIAN Family Medicine
PROC: 4B02XTZ Measurement of Cardiac Defibrillator, External Approach (ICD-10-PCS; 2024-04-20)
DX: I13.0 Hypertensive heart and chronic kidney disease with heart failure and stage 1 through stage 4 chronic kidney disease, or unspecified chronic kidney disease (principal); I50.43 Acute on chronic combined systolic (congestive) and diastolic (congestive) heart failure; N17.9 Acute kidney failure, unspecified; I48.19 Other persistent atrial fibrillation; Z79.01 Long term (current) use of anticoagulants; N18.31 Chronic kidney disease, stage 3a; E78.00 Pure hypercholesterolemia, unspecified; Z95.0 Presence of cardiac pacemaker; I25.10 Atherosclerotic heart disease of native coronary artery without angina pectoris; Z66 Do not resuscitate; E11.22 Type 2 diabetes mellitus with diabetic chronic kidney disease
CPT/HCPCS: 71046; 80048; 80053; 80061; 82962; 83735; 83880; 84443; 85025; 87502; 87811; 93005; 93288; 93306; 96374; 99285